=== PATIENT | female | born 1935 | race Caucasian/White ===

== ENCOUNTER 2018-12-04 12:25 | Inpatient (IN) ==
[2018-12-04] MEDS ORDERED: DESYREL PO PRN (14:26)
[2018-12-04] MEDS ORDERED: VANCOMYCIN IV PER PHARMACY MISC SCH (14:26)
[2018-12-04] MEDS ORDERED: PHENERGAN IV PRN (14:26)
[2018-12-04] MEDS ORDERED: SODIUM CHLORIDE 0.9% INJ PRN (14:26)
[2018-12-04 15:23] LABS: BASO# 0.03 X1000 (0.0-0.2); BASO% 0.2 % (0.0-0.8); EOS# 0.01 X1000 (0.0-0.7); EOS% 0.1 % (0.0-10.0); HEMATOCRIT 36.3 % (37.0-47.0); HEMOGLOBIN 11.6 g/dL (12.0-16.0); IMM GRAN# 0.05 X1000 (0.0-0.04); IMM GRAN% 0.4 % (0.0-0.5); MCH 27.7 PG (27-31); MCV 86.6 FL (81-99); MONO# 1.57 X1000 (0.11-0.59); MONO% 12.8 % (1.7-9.3); MPV 9.1 FL (7.4-10.4); NEUT# 9.04 X1000 (1.4-6.5); NEUT% 73.5 % (42.2-75.2); PLT 368 X1000 (130-400); RBC 4.19 XMIL (4.2-5.4); RDW 16.3 % (11.5-14.5)
[2018-12-04 15:59] LABS: AGAP 15; BUN 10 mg/dL (8-22); CALCIUM 10.4 mg/dL (8.8-10.2); CHLORIDE 97 mmol/L (98-107); COSMO 273; CREATININE 0.6 mg/dL (0.5-0.9); ESTIMATED GFR > 60; GLUCOSE 98 mg/dL (70-104); POTASSIUM 5.2 mmol/L (3.5-5.1); SODIUM 137 mmol/L (136-145); TCO2 25 mmol/L (25-35)
[2018-12-04] MEDS: CLINDAMYCIN 900 MG/D5W 900 MG/50 ML IVPB IV SCH ×2 (16:02→23:02)
[2018-12-04] MEDS: LOVENOX SUBQ SCH (16:03)
[2018-12-04] MEDS: NS 1,000 ML IV SCH (16:03)
[2018-12-04] MEDS ORDERED: TYLENOL PO PRN (16:48)
[2018-12-04] MEDS ORDERED: NORCO-7.5 PO PRN (16:49)
[2018-12-04] MEDS ORDERED: VANCOMYCIN 1,000 MG in NS 250 ML IV SCH (17:00)
[2018-12-04] MEDS: TRILEPTAL PO SCH (20:47)
[2018-12-04] MEDS: COREG PO SCH (20:47)
[2018-12-04] MEDS: PRILOSEC PO SCH (20:47)
[2018-12-04] MEDS: ZYVOX 600 MG/D5W 600 MG/300 ML IVPB IV SCH (20:47)
[2018-12-04] MEDS: XANAX PO SCH (20:47)
[2018-12-04] MEDS: SAVELLA PO SCH (20:48)
[2018-12-04] MEDS: PRAVACHOL PO SCH (20:48)
[2018-12-04 20:52] LABS: URINE SOURCE CLEAN CATCH
[2018-12-04 20:58] LABS: UR EPITHELIAL CELLS <10 /HPF (<10); URINE BACTERIA NEGATIVE /HPF; URINE RBC <10 /HPF (<10); URINE WBC <10 /HPF (<10)
[2018-12-04 21:00] LABS: BILIRUBIN URINE NEGATIVE (NEGATIVE); BLOOD URINE NEGATIVE (NEGATIVE); COLOR YELLOW; GLUCOSE URINE NEGATIVE (NEGATIVE); KETONE URINE 80 mg/dL (NEGATIVE); LEUKOCYTES URINE NEGATIVE (NEGATIVE); NITRITE URINE NEGATIVE (NEGATIVE); PROTEIN URINE 50 mg/dL (NEGATIVE); SP GRAVITY URINE 1.022; TURBIDITY URINE CLEAR (CLEAR); UROBILINOGEN URINE 2 mg/dL (NORMAL)
[2018-12-05] MEDS: CLINDAMYCIN 900 MG/D5W 900 MG/50 ML IVPB IV SCH ×3 (05:23→17:38)
[2018-12-05] MEDS: ULTRAM PO PRN ×3 (08:26→20:36)
[2018-12-05] MEDS: TRILEPTAL PO SCH ×2 (08:30→20:37)
[2018-12-05] MEDS: COREG PO SCH ×2 (08:31→20:37)
[2018-12-05] MEDS: SAVELLA PO SCH ×2 (08:31→20:38)
[2018-12-05] MEDS: PRILOSEC PO SCH ×2 (08:32→20:37)
[2018-12-05] MEDS: MOBIC PO SCH (08:33)
[2018-12-05] MEDS: ARICEPT PO SCH (08:38)
[2018-12-05] MEDS: ZYVOX 600 MG/D5W 600 MG/300 ML IVPB IV SCH ×2 (08:38→20:36)
[2018-12-05] MEDS: MIRALAX PO SCH (08:38)
[2018-12-05] MEDS ORDERED: CYMBALTA PO SCH (09:00)
--- NOTE | 2018-12-05 10:28 | Diag Imaging Result Doc PS360 ---
EXAM: CT HEAD WWO NECK W/CONTRAST 12/05/2018 HISTORY: cellulitis and suspected abscess of submandibular, TECHNIQUE: This exam was performed using automated exposure control, adjustment of mA or kV according to patient size, and/or use of iterative reconstruction technique. COMMENT: Head with and without contrast: There is no evidence of mass effect, bleed, or abnormal extra-axial fluid collection. There is periventricular white matter lucency particularly in the frontal lobes. There is mild generalized cerebral atrophy. There is no evidence of abnormal contrast enhancement. CT of the neck with intravenous contrast: Note is made is some tree and bud opacity in the right upper lobe which may indicate pneumonitis or granulomatous disease. There is parenchymal and pleural fibrosis in both apices. Some detail in the area of the mandible is obscured by beam hardening artifact secondary to the patient's dental work. The submandibular glands are not enlarged. There is apparent soft tissue swelling superficial to the body of the mandible on the right. There are no discrete fluid collections demonstrated. The jugulodigastric node on the right is slightly prominent measuring almost 10 mm in diameter. The epiglottis is normal in appearance. There is no definite abnormality in the visceral spaces around the nasopharynx pharynx or hypopharynx. The larynx is displaced somewhat to the left. There is some edema present in the fat superficial to the sternocleidomastoid muscle on the right and deep to the platysma. This is not well-defined however. IMPRESSION: 1. Chronic ischemic microvascular white matter disease. 2. Superficial and limited deep facial and upper cervical cellulitis on the right as described. No discrete abscess. Electronically signed by Tay Landrum 12/05/2018 10:26 AM
[2018-12-05 10:39] LABS: BASO# 0.02 X1000 (0.0-0.2); BASO% 0.2 % (0.0-0.8); EOS# 0.02 X1000 (0.0-0.7); EOS% 0.2 % (0.0-10.0); HEMATOCRIT 29.6 % (37.0-47.0); HEMOGLOBIN 9.4 g/dL (12.0-16.0); IMM GRAN# 0.03 X1000 (0.0-0.04); IMM GRAN% 0.3 % (0.0-0.5); LYMPH# 1.27 X1000 (1.2-3.4); MCH 27.6 PG (27-31); MCHC 31.8 g/dL (33-37); MCV 86.8 FL (81-99); MONO# 1.65 X1000 (0.11-0.59); MONO% 14.3 % (1.7-9.3); MPV 8.8 FL (7.4-10.4); NEUT# 8.55 X1000 (1.4-6.5); PLT 298 X1000 (130-400); RBC 3.41 XMIL (4.2-5.4); WBC 11.54 X1000 (4.8-10.8)
[2018-12-05 11:06] LABS: AGAP 8; BUN 9 mg/dL (8-22); CALCIUM 7.6 mg/dL (8.8-10.2); CHLORIDE 93 mmol/L (98-107); COSMO 255; CREATININE 0.7 mg/dL (0.5-0.9); ESTIMATED GFR > 60; GLUCOSE 122 mg/dL (70-104); POTASSIUM 3.2 mmol/L (3.5-5.1); SODIUM 127 mmol/L (136-145); TCO2 26 mmol/L (25-35)
--- NOTE | 2018-12-05 11:46 | PROGRESS NOTE ---
DATE: 12/05/2018 SUBJECTIVE: Ms. Adame was admitted with a cellulitis of the right face. She spiked fevers of 101 degrees last night. She has persistent right facial swelling and significant lymphadenopathy under the right jaw which is very tender. The swelling seems somewhat improved as compared to admission. She had an apparent allergic reaction to vancomycin last night where she turned red, had confusion and had shortness of breath. The vancomycin was discontinued. Blood cultures are pending. OBJECTIVE: General: She is awake and easily arousable. She is oriented to name, place, and time. Vital signs: T-max 101.5 degrees, current temperature 98.6 degrees, pulse 82, respirations 16, blood pressure 108/57. Cardiovascular: Regular rate and rhythm. Lungs: Clear. Abdomen: Soft, nontender, with active bowel sounds. HEENT: There is swelling of the right face. There is marked submandibular hypertrophy and significant tenderness. LABORATORY DATA: A CBC on admission demonstrated a white count of 12.3, hemoglobin 11.6, hematocrit 36.3, platelet count 368,000 with a left shift. Electrolytes demonstrated the following: Sodium 137, potassium 5.2, BUN 10, creatinine 0.6. ASSESSMENT AND PLAN: 1. Facial cellulitis. She does have a leukocytosis with a left shift. She was tachycardic on admission. We will continue broad-spectrum antibiotics including linezolid 600 mg q.12 hours and clindamycin 900 mg IV q.8 hours pending cultures. I will check a CT scan of the neck with contrast. I am concerned that she potentially has an abscess. Given the leukocytosis, tachycardia and fever, she meets screening criteria for sepsis. She has no evidence of hypotension, she has no end-organ failure. I do not believe that she needs tremendous amounts of fluid. We will continue normal saline at 75 mL per hour. Her blood pressure is stable and she does not require pressors. 2. Hypertension. Blood pressure is stable. We will continue her current regimen of medications including Coreg 12.5 mg b.i.d., and we will monitor her blood pressure closely. cc: Alisson Malone MD
--- NOTE | 2018-12-05 12:20 | Diag Imaging Result Doc PS360 ---
EXAM: CHEST-1 VIEW 12/05/2018 HISTORY: sepsis protocal TECHNIQUE: AP portable at 1207 COMMENT: There is a calcified node in the left hilum. There is no evidence of acute cardiac or pulmonary disease. Compared to 08/13/2018 there has been no significant change considering differences in technique. IMPRESSION: No evidence of acute disease. Electronically signed by Tay Landrum 12/05/2018 12:18 PM
[2018-12-05 12:40] LABS: BASO# 0.01 X1000 (0.0-0.2); BASO% 0.1 % (0.0-0.8); EOS# 0.03 X1000 (0.0-0.7); EOS% 0.3 % (0.0-10.0); HEMATOCRIT 32.8 % (37.0-47.0); HEMOGLOBIN 10.4 g/dL (12.0-16.0); IMM GRAN# 0.04 X1000 (0.0-0.04); IMM GRAN% 0.4 % (0.0-0.5); LYMPH# 0.96 X1000 (1.2-3.4); MCH 27.9 PG (27-31); MCHC 31.7 g/dL (33-37); MCV 87.9 FL (81-99); MONO# 1.45 X1000 (0.11-0.59); MONO% 13.6 % (1.7-9.3); MPV 8.9 FL (7.4-10.4); NEUT# 8.14 X1000 (1.4-6.5); NEUT% 76.6 % (42.2-75.2); PLT 312 X1000 (130-400); RBC 3.73 XMIL (4.2-5.4); RDW 16.3 % (11.5-14.5); WBC 10.63 X1000 (4.8-10.8)
[2018-12-05 12:56] LABS: INR 1.06; PROTIME 14.7 Seconds (11.0-16.0); PTT 36.8 Seconds (22.3-41.8)
[2018-12-05 13:10] LABS: AGAP 14; ALB/GLOB RATIO 1.4; ALBUMIN 3.4 g/dL (3.5-5.0); ALKALINE PHOSPHATASE 79 U/L (32-104); BUN 9 mg/dL (8-22); CALCIUM 7.6 mg/dL (8.8-10.2); CHLORIDE 96 mmol/L (98-107); CK PROFILE 92 U/L (24-173); COSMO 261; CREATININE 0.6 mg/dL (0.5-0.9); ESTIMATED GFR > 60; GLUCOSE 98 mg/dL (70-104); GOT 19 U/L (10-30); GPT 8 U/L (10-36); POTASSIUM 3.8 mmol/L (3.5-5.1); SODIUM 131 mmol/L (136-145); TCO2 21 mmol/L (25-35); TOTAL PROTEIN 5.8 g/dL (6.3-8.3)
[2018-12-05] MEDS: NS 1,000 ML IV SCH (17:37)
[2018-12-05] MEDS: LOVENOX SUBQ SCH (17:39)
[2018-12-05] MEDS: CYMBALTA PO SCH (20:37)
[2018-12-05] MEDS: XANAX PO SCH (20:37)
[2018-12-05] MEDS: PRAVACHOL PO SCH (20:38)
[2018-12-06] MEDS: DILAUDID IV PRN ×3 (00:42→19:45)
[2018-12-06] MEDS: CLINDAMYCIN 900 MG/D5W 900 MG/50 ML IVPB IV SCH ×3 (00:53→19:05)
[2018-12-06] MEDS ORDERED: NS 250 ML IV ONE (10:35)
--- NOTE | 2018-12-06 10:52 | PROGRESS NOTE ---
DATE: 12/06/2018 SUBJECTIVE: Ms. Adame was admitted to [facility] with cellulitis of the right face and sepsis. The right facial swelling has improved significantly. The right jaw pain is much improved. Blood cultures demonstrate no growth after 48 hours. A chest x-ray was clear. Blood pressure has been a little bit low this morning. Her blood pressure was 97/47. She denies any nausea vomiting, chest pain, palpitations, or anginal equivalents. OBJECTIVE: Vital signs: Temperature 98.3 degrees, pulse 85, respirations 16, blood pressure 97/47. Cardiovascular: Regular rate and rhythm. Lungs: Clear. Abdomen: Soft, nontender, with active bowel sounds. HEENT: There is significant improvement in the right facial swelling. She no longer has any significant tenderness or lymphadenopathy. ASSESSMENT AND PLAN: 1. Cellulitis of the right cheek with sepsis. She continues to improve clinically. She is no longer running any fevers. Her pulse is stable. We will continue broad-spectrum antibiotics. If she continues to improve, I hope to transition her to oral antibiotics tomorrow. 2. Hypertension. Blood pressure is a little bit low. I will give her a bolus of normal saline and I will reduce the Coreg to 6.25 mg b.i.d. cc: Alisson Malone MD
[2018-12-06] MEDS: SAVELLA PO SCH ×2 (12:09→20:32)
[2018-12-06] MEDS: MOBIC PO SCH (12:10)
[2018-12-06] MEDS: PRILOSEC PO SCH ×2 (12:10→20:31)
[2018-12-06] MEDS: TRILEPTAL PO SCH ×2 (12:11→20:31)
[2018-12-06] MEDS: MIRALAX PO SCH (12:11)
[2018-12-06] MEDS: ARICEPT PO SCH (12:12)
[2018-12-06] MEDS: ZYVOX 600 MG/D5W 600 MG/300 ML IVPB IV SCH ×2 (12:19→20:32)
[2018-12-06] MEDS: NS 1,000 ML IV SCH ×2 (18:21→21:22)
[2018-12-06] MEDS: LOVENOX SUBQ SCH ×2 (18:22→19:05)
[2018-12-06] MEDS: COREG PO SCH (20:32)
[2018-12-06] MEDS: XANAX PO SCH (20:32)
[2018-12-06] MEDS: PRAVACHOL PO SCH (20:32)
[2018-12-06] MEDS: CYMBALTA PO SCH (20:32)
[2018-12-07] MEDS: CLINDAMYCIN 900 MG/D5W 900 MG/50 ML IVPB IV SCH (00:45)
[2018-12-07] MEDS: NS 1,000 ML IV SCH (00:46)
[2018-12-07] MEDS: DILAUDID IV PRN (04:30)
[2018-12-07 07:23] VITALS: BP 131/51
[2018-12-07] MEDS: ARICEPT PO SCH (08:58)
[2018-12-07] MEDS: COREG PO SCH (08:58)
[2018-12-07] MEDS: SAVELLA PO SCH (08:58)
[2018-12-07] MEDS: MOBIC PO SCH (08:58)
[2018-12-07] MEDS: TRILEPTAL PO SCH (08:58)
[2018-12-07] MEDS: PRILOSEC PO SCH (08:58)
[2018-12-07] MEDS: MIRALAX PO SCH (08:59)
[2018-12-07] MEDS ORDERED: LEVAQUIN PO SCH (09:00)
[2018-12-07] MEDS ORDERED: CLEOCIN PO SCH (09:00)
--- NOTE | 2018-12-07 18:14 | DISCHARGE SUMMARY ---
ADMISSION DATE: 12/04/2018 DISCHARGE DATE: 12/07/2018 DISCHARGE DIAGNOSES: 1. Cellulitis of the right face. 2. Sepsis. 3. Essential hypertension. 4. Mixed hyperlipidemia. 5. Fibromyalgia. 6. 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 DISCHARGE INSTRUCTIONS: 1. Return to clinic in 1 week to see me, Dr. Grzegorz Malone. 2. Activity as tolerated. 3. Healthy heart diet. 4. Medications. Clindamycin 300 mg t.i.d. for 7 days, Augmentin 875 mg b.i.d. for 7 days, Mobic 15 mg daily, pravastatin 40 mg at bedtime, Coreg 6.25 mg b.i.d., Ultram 50 mg q.6 hours p.r.n. pain, MiraLAX 17 g in 8 ounces of water daily, Aricept 5 mg daily, Savella 50 mg b.i.d., omeprazole 20 mg daily, duloxetine 60 mg daily, Xanax 0.25 mg at bedtime, Trileptal 150 mg b.i.d., Pravastatin 40 mg at bedtime, Linzess 290 mcg daily. Ms. Adame was admitted to [facility] with facial cellulitis in association with elevated temperatures of 101.8, tachycardia, tachypnea and a leukocytosis with left shift. A CT scan of the neck and soft tissues of the neck confirmed the presence of a cellulitis without evidence of abscess formation. We initially treated her with clindamycin and vancomycin. We did not treat her with Levaquin because Levaquin is contraindicated in the face of a seizure disorder. She reportedly has a history of allergies to Keflex which are noted in the hospital computer but the patient denies any allergies to penicillin. She had an apparent reaction to the vancomycin which was discontinued and she was switched to Linezolid 600 mg IV q.12 hours. Over the course of the next several days the facial swelling improved markedly. Her leukocytosis resolved. She had no further episodes of tachycardia or tachypnea. We bolused her with fluids as needed. She had several episodes of hypotension for which we reduced her blood pressure medicine and bolused her with fluid. She never had persistent hypotension which would require tremendous amounts of fluid. We gradually weaned her off intravenous antibiotics and she will take clindamycin and Augmentin for an additional 7 days as an outpatient. I will see her back in the office in 1 week for a transition of care visit. Having reached maximum hospital benefit, the patient was discharged in stable condition. cc: Alisson Malone MD
== END 2018-12-07 09:36 | disposition home or self-care (01) | DRG 872 ==
LOC: DIRADM → OBSVTOIN 12:25 → 4N 14:04
PROVIDERS: ADMIT Internal Medicine; ATTEND Internal Medicine
CPT/HCPCS: 70470; 70491; 71010; 71045; 80048; 80053; 81001; 82550; 83605; 84484; 85025; 85610; 85730; 87040; 94761; A9270; J1170; J1650; J2020; J2550; J3370; J7030; J7040; J7050; Q9967